=== PATIENT | female | born 1955 | race Asian ===

== ENCOUNTER 2025-03-12 10:38 | Emergency (ER) | payer OTHER ==
[~2025-03-12] VITALS: Ht 149.9 cm; Wt 47.0 kg
--- NOTE | 2025-03-12 11:27 | ED.PDOC ---
Altered Mental Status HPI Comments 69-year-old female with a past medical history of hypertension, hyperlipidemia, and prediabetes, presents to the ED via EMS status post syncopal episode x2 today. EMS reports that patient was at the gas station, developed abdominal pain and went to the restroom where she lost consciousness. After regaining her consciousness, patient went back to the gas station pump where her car was to fill her gas and she had another syncope, falling face forward onto the pump. Patient presents with a 2 cm deep laceration to her right side of the forehead, controlled bleeding and lac to the bottom lip x 2 one measuring 0.5cm and the other 1cm. She denies any chest pain, SOB, fever, chills, nausea, vomiting. She is not on any blood thinners. Chief Complaint: Syncope Time Seen by MD: 10:34 Reviewed Notes: Nurses Notes, Hotel Server Notes, Medications, Allergies Allergies: Coded Allergies: Amoxicillin (Verified Allergy, Unknown, 03/12/25) Ampicillin (Verified Allergy, Unknown, 03/12/25) Erythromycin (Verified Allergy, Unknown, 03/12/25) Hydrochlorothiazide (Verified Allergy, Unknown, 03/12/25) Penicillins (Verified Allergy, Unknown, 03/12/25) Information Source: Patient, Emergency Med Personnel Mode of Arrival: EMS Severity: Moderate Timing: Hours Duration: Since onset Quality: Decreased Alertness Recent: Other Associated Signs and Symptoms: None Past Medical History PAST MEDICAL HISTORY: DM, High Lipids, HTN Surgical History: Denies all surgeries PRINCIPAL HARDWARE ARCHITECT History: No Pertinent PRINCIPAL HARDWARE ARCHITECT History Family History Family History: Reviewed,noncontributory to illness Social History Smoker: Non-Smoker Alcohol: Denies ETOH Use Drugs: Denies Drug Use Lives In: Home Constitutional: denies: chills, diaphoresis, fatigue, fever, malaise, sweats, weakness, others EENTM: denies: blurred vision, double vision, ear bleeding, ear discharge, ear drainage, ear pain, ear ringing, eye pain, eye redness, hearing loss, mouth pain, mouth swelling, nasal discharge, nose bleeding, nose congestion, nose pain, photophobia, tearing, throat pain, throat swelling, voice changes, others Respiratory: denies: cough, hemoptysis, orthopnea, SOB at rest, shortness of breath, SOB with excertion, stridor, wheezing, others Cardiovascular: reports: syncope; denies: chest pain, dizzy spells, diaphoresis, Dyspnea on exertion, edema, irregular heart beat, left arm pain, lightheadedness, palpitations, PND, others Gastrointestinal: reports: abdominal pain; denies: abdomen distended, blood streaked bowels, constipated, diarrhea, dysphagia, difficulty swallowing, hematemesis, melena, nausea, poor appetite, poor fluid intake, rectal bleeding, rectal pain, vomiting, others Genitourinary: denies: abnormal vagina bleeding, burning, dyspareunia, dysuria, flank pain, frequency, hematuria, incontinence, pain, , vagina discharge, urgency, others Neurological: denies: dizziness, fainting, headache, left sided numbness, left sided weakness, numbness, paresthesia, pre-existing deficit, right sided numbness, right sided weakness, seizure, speech problems, tingling, tremors, weakness, others Musculoskeletal: denies: back pain, gout, joint pain, joint swelling, muscle pain, muscle stiffness, neck pain, others Integumetry: denies: bruises, change in color, change in hair/nails, dryness, laceration, lesions, lumps, rash, wounds, others Allergic/Immunocompromised: denies: Difficulty Healing, Frequent Infections, Hives, Itching, others Hematologic/Lymphatic: denies: anemia, blood clots, easy bleeding, easy bruisin g, swollen glands, others Endocrine: denies: excessive hunger, excessive sweating, excessive thirst, excessive urination, flushing, intolerance to cold, intolerance to heat, unexplained weight gain, unexplained weight loss, others Psychiatric: denies: anxiety, bipolar disorder, depression, hopeless, panic disorder, schizophrenia, sleepless, suicidal, others All Other Systems: Reviewed and Negative Physical Exam General Appearance: Moderate Distress HEENT: Normal ENT Inspection, Pharynx Normal, TMs Normal Neck: Full Range of Motion, Non-Tender, Normal, Normal Inspection Respiratory: Chest Non-Tender, Lungs Clear, No Accessory Muscle Use, No Respiratory Distress, Normal Breath Sounds Cardiovascular: No Edema, No JVD, No Murmur, No Gallop, Normal Peripheral Pulses, Regular Rate/Rhythm Breast Exam: Deferred Gastrointestinal: No Organomegaly, Non Tender, No Pulsatile Mass, Normal Bowel Sounds, Soft Genitalia: Deferred Pelvic: Deferred Rectal: Deferred Extremities: No calf tenderness, Normal capillary refill, Normal inspection, Normal range of motion, Non-tender, No pedal edema Musculoskeletal : Apperance: Normal Neurologic: Alert, banking pin adjuster II-XII nml as Tested, No Motor Deficits, Normal Affect, Normal Mood, No Sensory Deficits Cerebellar Function: NOT DONE Reflexes: NOT DONE Skin: Lacerations (Right side of forehead) Peripheral Pulses: 3+ Radial (R), 3+ Radial (L) Lymphatic: No Adenopathy Was a procedure done? Was a procedure done?: Yes Sedation Sedation?: No Laceration Repair : Location right sided forehead and two at the bottom lip Length 2cm for forehead and 0.5 lower lip and 1cm of bottom lip as well Anesthetic: Lidocaine Laceration Repair Prep: Saline Laceration Repair Wound Comple: epidermis/dermis repair Laceration Repair: Number of sutures (8) Informed consent obtained: Yes Risks, benefits, and alternati: Yes Differential Diagnosis (ALOC) Differential Diagnosis: Dehydration, Hypoglycemia, Hypoxemia, Closed Head Injury, Heart Failure, Renal Failure X-Ray, Labs, Meds, VS Vital Signs Date Time Temp Pulse Resp B/P (MAP) Pulse Ox O2 Delivery O2 Flow Rate FiO2 03/12/25 11:30 97.8 59 18 125/58 (80) 97 97.8 03/12/25 11:30 59 18 97 Room Air* 0 21 03/12/25 11:18 97.6 58 16 122/78 94 97.6 03/12/25 10:41 55 Lab Test 03/12/25 12:52 Range/Units White Blood Count 10.3 4.4-10.8 10^3/uL Red Blood Count 4.74 4.0-5.20 10^6/uL Hemoglobin 14.7 12.2-16.2 g/dL Hematocrit 44.2 36.0-46.0 % Mean Corpuscular Volume 93.3 80.0-100.0 fL Mean Corpuscular Hemoglobin 31.0 28.0-32.0 pg Mean Corpuscular Hemoglobin Concent 33.2 32.0-36.0 g/dL Red Cell Distribution Width 13.4 11.8-14.3 % Platelet Count 151 140-450 10^3/uL Mean Platelet Volume 7.7 6.9-10.8 fL Neutrophils (%) (Auto) 86.6 H 37.0-80.0 % Lymphocytes (%) (Auto) 8.5 L 10.0-50.0 % Monocytes (%) (Auto) 4.5 0.0-12.0 % Eosinophils (%) (Auto) 0.3 0.0-7.0 % Basophils (%) (Auto) 0.1 0.0-2.0 % Neutrophils # (Auto) 8.9 H 1.6-8.6 10 ^3/uL Lymphocytes # (Auto) 0.9 0.4-5.4 10 ^3/uL Monocytes # (Auto) 0.5 0-1.3 10 ^3/uL Eosinophils # (Auto) 0 0-0.8 10 ^3/uL Basophils # (Auto) 0 0-0.2 10 ^3/uL Nucleated Red Blood Cells 0.0 % Sodium Level 143 136-145 mmol/L Potassium Level 3.8 3.5-5.1 mmol/L Chloride Level 107 98-107 mmol/L Carbon Dioxide Level 21 20-31 mmol/L Anion Gap 15 5-15 Blood Urea Nitrogen 12 9-23 mg/dL Creatinine 0.60 0.550-1.02 mg/dL Glomerular Filtration Rate Calc 97 >90 mL/min BUN/Creatinine Ratio 20.0 10.0-20.0 Serum Glucose 183 H 74-106 mg/dL Calcium Level 9.2 8.7-10.4 mg/dL Troponin I High Sensitivity < 3 L </=34 ng/L Current Medications Medications (Trade) Dose Ordered Sig/Araseli Route Start Time Stop Time Status Last Admin Sodium Chloride 1,000 ml @ 1,000 mls/hr Q1H ONCE IV 03/12/25 11:00 03/12/25 11:59 DC 03/12/25 13:56 Diphtheria/ Tetanus/Acell Pertussis (Boostrix T-Dap) 0.5 ml ONCE ONCE IM 03/12/25 11:00 03/12/25 11:01 DC 03/12/25 11:55 Patient alert. Status post fall. Has a laceration of the right side of the forehead. Vitals stable. Answering questions. Unknown why she fell and hit her head on the bathroom floor. Tetanus was given. Explained to the patient. Continue monitoring. Time of 1ST Reevaluation: 11:27 Reevaluation 1ST: Unchanged Patient Education/Counseling: Diagnosis, Treatment, Prognosis Family Education/Counseling: No Family Present SEPSIS Sepsis Screen Physician Orders Head Without Contrast (03/12/25 10:51) Chest Portable (03/12/25 10:51) Urinalysis (03/12/25 10:51) Sodium Chloride 0.9% (03/12/25 11:00) Cervical Spine 3v (03/12/25 11:39) Vital Signs Date Time Temp Pulse Resp B/P (MAP) Pulse Ox O2 Delivery O2 Flow Rate FiO2 03/12/25 11:30 97.8 59 18 125/58 (80) 97 97.8 03/12/25 11:30 59 18 97 Room Air* 0 21 03/12/25 11:18 97.6 58 16 122/78 94 97.6 03/12/25 10:41 55 Laboratory Tests Test 03/12/25 12:52 White Blood Count 10.3 10^3/uL (4.4-10.8) Medications Medications Dose Ordered Sig/Araseli Route Start Time Stop Time Status Last Admin Dose Admin Diphtheria/ Tetanus/Acell Pertussis 0.5 ml ONCE ONCE IM 03/12/25 11:00 03/12/25 11:01 DC 03/12/25 11:55 Sodium Chloride 1,000 ml @ 1,000 mls/hr Q1H ONCE IV 03/12/25 11:00 03/12/25 11:59 DC 03/12/25 13:56 Departure 1 Departure Time of Disposition: 11:59 Impression: Primary Impression: Head injury Qualified Codes: S09.90XA - Unspecified injury of head, initial encounter Additional Impressions: Syncope Qualified Codes: R55 - Syncope and collapse Laceration Disposition: 09 ADMITTED INPATIENT Admit to: Med Surg Condition: Guarded Critical Care Note Critical Care Time?: Yes (90 min-critical care time only) Stability Stability form required: No I personally scribed for BAY SALAZAR MD ([email or web address]) on 03/12/25 at 11:27. Electronically submitted by Nga Perales ([facility]). I personally scribed for BAY SALAZAR MD ([email or web address]) on 03/12/25 at 14:25. Electronically submitted by Nga Perales ([facility]). BAY SALAZAR MD Mar 12, 2025 11:27
[2025-03-12 11:30] VITALS: PULSE 59; RESP 18; TEMP 97.8; O2SAT 97
[2025-03-12] MEDS: TETANUS-DIPTH-ACEL PERTUSSIS 0.5ML SYR Tdap IM ONE (11:55)
--- NOTE | 2025-03-12 12:02 | DVH ---
EXAM: XY CHEST PORTABLE CLINICAL HISTORY: sob TECHNIQUE: Single AP view of the chest WID: COMPARISON: None FINDINGS: Lines and tubes: Cholecystectomy clips. Chest: The heart size and pulmonary vasculature is within normal limits. No pleural effusion, pneumothorax, or consolidation. The osseous structures are grossly intact. Multilevel thoracic spondylosis. IMPRESSION: 1. No acute cardiopulmonary abnormality.
--- NOTE | 2025-03-12 12:17 | ECG ---
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
--- NOTE | 2025-03-12 12:19 | DVH ---
CLINICAL HISTORY: fall TECHNIQUE: Helical imaging carried out from skull base to vertex without intravenous contrast. This exam was performed according to our departmental dose optimization program. Up-to-date CT equipment and radiation dose reduction techniques are utilized as appropriate. CTDIVol: 51.28 mGy DLP: 908.09 mGy-cm WID: COMPARISON: None FINDINGS: Small laceration in the right frontal scalp / forehead. There is a small contusion in the left forehead. The ventricles and subarachnoid spaces are normal in size and configuration. There is no midline shift or mass effect. The dumont white matter interfaces are maintained. The basal cisterns are patent. There is no evidence of acute intracranial hemorrhage or extra-axial fluid collection. The mastoid air cells and visualized paranasal sinuses are well-aerated. Prior ocular lens replacement. IMPRESSION: 1. No acute intracranial abnormality. 2. Small laceration in the right frontal scalp / forehead and small contusion in the left forehead.
--- NOTE | 2025-03-12 12:54 | DVH ---
CLINICAL INDICATION: fall TECHNIQUE: 5 radiographic views of the cervical spine were obtained. COMPARISON: None FINDINGS/IMPRESSION: Bony spondylosis and degenerative disc changes are noted at C5-6 and 7. There are no significantly compressed vertebra. Prevertebral soft tissues are within normal limits. There is straightening of the normal cervical lordotic curve which may be secondary to patient positioning or muscle spasm.
[2025-03-12 13:18] LABS: Hematocrit 44.2 % (36.0-46.0); Hemoglobin 14.7 g/dL (12.2-16.2); Mean Corpuscular Hemoglobin 31.0 pg (28.0-32.0); Mean Corpuscular Volume 93.3 fL (80.0-100.0); Nucleated Red Blood Cells % 0.0 %
[2025-03-12 13:37] LABS: Potassium 3.8 mmol/L (3.5-5.1); Sodium 143 mmol/L (136-145)
[2025-03-12 13:38] LABS: Anion Gap 15 (5-15); Calcium 9.2 mg/dL (8.7-10.4); Carbon Dioxide 21 mmol/L (20-31)
[2025-03-12 13:39] LABS: Chloride 107 mmol/L (98-107)
[2025-03-12] MEDS: LIDOCAINE 1% HCL (LOCAL ANESTH.) INJ 20ML MDV ID ONE (13:40)
[2025-03-12 13:43] LABS: BUN/Creatinine Ratio 20.0 (10.0-20.0); Blood Urea Nitrogen 12 mg/dL (9-23); Glucose 183 mg/dL (74-106)
[2025-03-12] MEDS: SODIUM CHLORIDE 0.9% 1,000 ML IV ONE ×2 (13:56→14:28)
[2025-03-12] MEDS ORDERED: ONDANSETRON HCL 4 MG/2 ML VIAL IV PRN (14:45)
[2025-03-12] MEDS ORDERED: ACETAMINOPHEN 325 MG TAB PO PRN (14:45)
[2025-03-12] MEDS ORDERED: PANTOPRAZOLE 40 MG/10 ML VIAL INJ IV ONE (14:45)
--- NOTE | 2025-03-12 14:45 | DVHHPRES ---
Review of Systems Allergies: Coded Allergies: Amoxicillin (Verified Allergy, Unknown, 03/12/25) Ampicillin (Verified Allergy, Unknown, 03/12/25) Erythromycin (Verified Allergy, Unknown, 03/12/25) Hydrochlorothiazide (Verified Allergy, Unknown, 03/12/25) Penicillins (Verified Allergy, Unknown, 03/12/25) Exam Vital Signs Vital Signs Date Time Temp Pulse Resp B/P (MAP) Pulse Ox O2 Delivery O2 Flow Rate FiO2 03/12/25 11:30 97.8 59 18 125/58 (80) 97 97.8 03/12/25 11:30 Room Air* 0 21 Labs/Xrays Labs Test 03/12/25 12:52 Range/Units White Blood Count 10.3 4.4-10.8 10^3/uL Red Blood Count 4.74 4.0-5.20 10^6/uL Hemoglobin 14.7 12.2-16.2 g/dL Hematocrit 44.2 36.0-46.0 % Mean Corpuscular Volume 93.3 80.0-100.0 fL Mean Corpuscular Hemoglobin 31.0 28.0-32.0 pg Mean Corpuscular Hemoglobin Concent 33.2 32.0-36.0 g/dL Red Cell Distribution Width 13.4 11.8-14.3 % Platelet Count 151 140-450 10^3/uL Mean Platelet Volume 7.7 6.9-10.8 fL Neutrophils (%) (Auto) 86.6 H 37.0-80.0 % Lymphocytes (%) (Auto) 8.5 L 10.0-50.0 % Monocytes (%) (Auto) 4.5 0.0-12.0 % Eosinophils (%) (Auto) 0.3 0.0-7.0 % Basophils (%) (Auto) 0.1 0.0-2.0 % Neutrophils # (Auto) 8.9 H 1.6-8.6 10 ^3/uL Lymphocytes # (Auto) 0.9 0.4-5.4 10 ^3/uL Monocytes # (Auto) 0.5 0-1.3 10 ^3/uL Eosinophils # (Auto) 0 0-0.8 10 ^3/uL Basophils # (Auto) 0 0-0.2 10 ^3/uL Nucleated Red Blood Cells 0.0 % Sodium Level 143 136-145 mmol/L Potassium Level 3.8 3.5-5.1 mmol/L Chloride Level 107 98-107 mmol/L Carbon Dioxide Level 21 20-31 mmol/L Anion Gap 15 5-15 Blood Urea Nitrogen 12 9-23 mg/dL Creatinine 0.60 0.550-1.02 mg/dL Glomerular Filtration Rate Calc 97 >90 mL/min BUN/Creatinine Ratio 20.0 10.0-20.0 Serum Glucose 183 H 74-106 mg/dL Calcium Level 9.2 8.7-10.4 mg/dL Troponin I High Sensitivity < 3 L </=34 ng/L SEPSIS Sepsis Screen Date sepsis recognized/suspect: Mar 12, 2025 Time Sepsis recognized/suspect: 1034 Recent Procedure: No On Antibiotic Therapy: No Respiratory Rate >20: No Heart Rate >90: No Temp<36 C (96.8 F) or >38.3 C: No SBP <90 or MAP <65 mmHG: No New Acute Mental Status Change: No Is the patient on CPAP, BIPAP,: No Physician Orders Head Without Contrast (03/12/25 10:51) Chest Portable (03/12/25 10:51) Urinalysis (03/12/25 10:51) Sodium Chloride 0.9% (03/12/25 11:00) Cervical Spine 3v (03/12/25 11:39) Admit (03/12/25 14:37) Code Status (03/12/25 14:37) Acetaminophen Tablet (Tylenol Tablet) (03/12/25 14:45) Ondansetron Hcl (Zofran) (03/12/25 14:45) Complete Blood Count (03/13/25 04:00) Comprehensive Metabolic Panel (03/13/25 04:00) Cardiac Diet-2gna,Lofat,Lochol (03/12/25 Dinner) Echo 2d Mode Cardiac Dop (03/12/25 14:37) Carotid Duplx W Color Dop (03/12/25 14:37) Morphine Sulfate Injection (03/12/25 14:45) Enoxaparin Sodium (Lovenox) (03/13/25 10:00) Oxygen By Nasal Cannula (03/12/25 14:37) Stat Ekg For Chest Pain (03/12/25 14:37) Notify Of Changes From Base (03/12/25 14:37) Form Building Supervisor For 24 Hours (03/12/25 14:37) Emergency Dysrhythmia Protocol (03/12/25 14:37) Rhythm Strips Once Every Shift (03/12/25 14:37) Vitamin D, 25-Hydroxy (03/12/25 14:37) Vitamin B12 (03/12/25 14:37) Urinalysis (03/12/25 14:37) Thyroid Stimulating Hormone (03/12/25 14:37) PTPTT (03/12/25 14:37) Phosphorus (03/12/25 14:37) Magnesium (03/12/25 14:37) Lipid Panel (03/12/25 14:37) Lactic Acid W/ Reflex Order (03/12/25 14:37) Hemoglobin A1c (03/12/25 14:37) Drug Screen (03/12/25 14:37) Ammonia (03/12/25 14:37) Electrocardigram (03/12/25 14:37) Orthostatic Vital Signs (03/12/25 14:37) Orthostatic Vital Signs (03/12/25 ) Pantoprazole (Protonix) (03/13/25 10:00) Pantoprazole (Protonix) (03/12/25 14:45) * Wound Consult (03/12/25 ) Vital Signs Date Time Temp Pulse Resp B/P (MAP) Pulse Ox O2 Delivery O2 Flow Rate FiO2 03/12/25 11:30 97.8 59 18 125/58 (80) 97 97.8 03/12/25 11:30 59 18 97 Room Air* 0 21 03/12/25 11:18 97.6 58 16 122/78 94 97.6 03/12/25 10:41 55 Laboratory Tests Test 03/12/25 12:52 White Blood Count 10.3 10^3/uL (4.4-10.8) Medications Medications Dose Ordered Sig/Araseli Route Start Time Stop Time Status Last Admin Dose Admin Diphtheria/ Tetanus/Acell Pertussis 0.5 ml ONCE ONCE IM 03/12/25 11:00 03/12/25 11:01 DC 03/12/25 11:55 0.5 ML Sodium Chloride 1,000 ml @ 1,000 mls/hr Q1H ONCE IV 03/12/25 11:00 03/12/25 11:59 DC 03/12/25 13:56 1,000 MLS/HR Assessment/Plan My Orders Orders - VALENTÍN HOFFMANN RESIDENT Procedure Category Date Status Time Admit ADMIT 03/12/25 Transmitted 14:37 Code Status CODE 03/12/25 Transmitted 14:37 Acetaminophen Tablet PHA 03/12/25 Logged (Tylenol Tablet) 14:45 Ondansetron Hcl PHA 03/12/25 Logged (Zofran) 14:45 Complete Blood Count LAB 03/13/25 Verified 04:00 Comprehensive LAB 03/13/25 Verified Metabolic Panel 04:00 Cardiac DIET 03/12/25 Transmitted Diet-2gna,Lofat,Lochol Dinner Echo 2d Mode Cardiac US 03/12/25 Logged DOP 14:37 Carotid Duplx W Color US 03/12/25 Logged DOP 14:37 Morphine Sulfate PHA 03/12/25 Logged Injection 14:45 Enoxaparin Sodium PHA 03/13/25 Logged (Lovenox) 10:00 Oxygen By Nasal RT 03/12/25 Transmitted Cannula 14:37 Stat Ekg For Chest [facility] 03/12/25 In Process Pain 14:37 Notify Md Of Changes [facility] 03/12/25 In Process From Base 14:37 Form Building Supervisor For [facility] 03/12/25 In Process 24 Hours 14:37 Emergency Dysrhythmia [facility] 03/12/25 In Process Protocol 14:37 Rhythm Strips Once [facility] 03/12/25 In Process Every Shift 14:37 Vitamin D, 25-Hydroxy LAB 03/12/25 Logged 14:37 Vitamin B12 LAB 03/12/25 Logged 14:37 Urinalysis LAB 03/12/25 Logged 14:37 Thyroid Stimulating LAB 03/12/25 Transmitted Hormone 14:37 PTPTT LAB 03/12/25 Transmitted 14:37 Phosphorus LAB 03/12/25 Transmitted 14:37 Magnesium LAB 03/12/25 Transmitted 14:37 Lipid Panel LAB 03/12/25 Transmitted 14:37 Lactic Acid W/ Reflex LAB 03/12/25 Transmitted Order 14:37 Hemoglobin A1c LAB 03/12/25 Transmitted 14:37 Drug Screen LAB 03/12/25 Transmitted 14:37 Ammonia LAB 03/12/25 Transmitted 14:37 Electrocardigram EKG 03/12/25 Logged 14:37 Orthostatic Vital ORDERS 03/12/25 Transmitted Signs 14:37 Orthostatic Vital ED NURSING 03/12/25 Transmitted Signs Pantoprazole PHA 03/13/25 Logged (Protonix) 10:00 Pantoprazole PHA 03/12/25 Logged (Protonix) 14:45 * Wound Consult CONS 03/12/25 Transmitted VALENTÍN HOFFMANN RESIDENT Mar 12, 2025 14:45
[2025-03-12] MEDS ORDERED: MORPHINE SULFATE 4 MG/ML SYR/VIAL IV PRN (15:00)
[2025-03-12 15:15] VITALS: BP 133/56; PULSE 74; RESP 18; O2SAT 97
[2025-03-12 15:27] LABS: Triglycerides 74.0 mg/dL (< 150)
[2025-03-12 15:28] LABS: Magnesium 2.7 mg/dL (1.6-2.6)
[2025-03-12 15:29] LABS: Cholesterol 163.0 mg/dL (< 200)
[2025-03-12 15:44] LABS: HDL Cholesterol 87.0 mg/dL (40-59)
[2025-03-13] MEDS ORDERED: PANTOPRAZOLE 40 MG/10 ML VIAL INJ IV SCH (10:00)
[2025-03-13] MEDS ORDERED: ENOXAPARIN SOD 40 MG/0.4 ML SYRINGE SC SCH (10:00)
== END 2025-03-12 15:25 | disposition left against medical advice (07) ==
LOC: EDBD 10:38 → ER 10:38 → UNDOADMIN 14:37 → OVERFLOW 14:37 → UNDODISIN 15:25 → OVERFLOW 15:25
DX: S01.81XA Laceration without foreign body of other part of head, initial encounter (principal); S01.511A Laceration without foreign body of lip, initial encounter; S09.8XXA Other specified injuries of head, initial encounter; R55 Syncope and collapse; E78.5 Hyperlipidemia, unspecified; E11.9 Type 2 diabetes mellitus without complications; I10 Essential (primary) hypertension; X58.XXXA Exposure to other specified factors, initial encounter; Y93.89 Activity, other specified; Y92.89 Other specified places as the place of occurrence of the external cause; Y99.8 Other external cause status
CPT/HCPCS: 12013; 36415; 70450; 71045; 72040; 80048; 80061; 82306; 83036; 83735; 84100; 84443; 84484; 85025; 90471; 90715; 93005; 96360; 99285; A4649; J2003; 12001; 80307; 82607; 96372; 99291; G0378